=== PATIENT | male | born 1965 | race Two or more races ===

== ENCOUNTER 2023-12-18 08:11 | Emergency (ER) | payer MEDICAID, OTHER ==
[~2023-12-18] VITALS: Ht 167.6 cm; Wt 70.0 kg
[2023-12-18] MEDS: diphenhdrAMINE HCL 50 MG/1 ML VL IV ONE (08:37)
[2023-12-18] MEDS: KETOROLAC TROMETH 30 MG/ML 1ML VIAL IV ONE (08:37)
[2023-12-18] MEDS ORDERED: TRIA0.02 TOP (08:57)
[2023-12-18] MEDS ORDERED: BACL10TA PO (08:57)
[2023-12-18] MEDS ORDERED: BACDST PO (08:57)
[2023-12-18 09:00] VITALS: PULSE 102; RESP 18; O2SAT 96
== END 2023-12-18 09:27 | disposition home or self-care (01) ==
LOC: EDBD 08:11 → ER 08:28
DX: S40.262A Insect bite (nonvenomous) of left shoulder, initial encounter (principal); S40.261A Insect bite (nonvenomous) of right shoulder, initial encounter; E11.9 Type 2 diabetes mellitus without complications; W57.XXXA Bitten or stung by nonvenomous insect and other nonvenomous arthropods, initial encounter; Y93.89 Activity, other specified; Y92.89 Other specified places as the place of occurrence of the external cause; Y99.8 Other external cause status
CPT/HCPCS: 96374; 96375; 99284; J1200; J1885